=== PATIENT | male | born 1940 | race Caucasian/White ===

== ENCOUNTER 2016-07-17 11:43 | Emergency (ER) | payer MEDICARE, MEDICAID ==
[2016-07-17] MEDS ORDERED: Sodium Chloride 0.9% 10 ML Syringe FLUSH PRN (12:02)
[2016-07-17] MEDS ORDERED: Ondansetron 4 MG/2 ML SDV IVPUSH ONE (12:05)
[2016-07-17] MEDS ORDERED: Sodium Chloride 0.9% 1,000 ML IV ONE ×2 (12:05→13:36)
[2016-07-17 13:05] LABS: CHLORIDE,CL 102 mmol/L (98-107); SODIUM,NA 136 mmol/L (136-145)
[2016-07-17] MEDS ORDERED: Calcium Chloride 10% 1 GM/10 ML Syringe IVPUSH ONE (13:36)
[2016-07-17] MEDS ORDERED: Insulin Regular, Human 10 UNIT in Dextrose 10% in Water 500 ML IV ONE ×2 (13:37)
[2016-07-17] MEDS ORDERED: Calcium Gluconate 10% 1 GM/10 ML SDV IVPUSH ONE (13:43)
[2016-07-17] MEDS ORDERED: 50% Dextrose in Water 50 ML Syringe IV PRN (13:43)
[2016-07-17] MEDS ORDERED: Insulin Regular, Human 100 Units/ML 3 ML Vial IV ONE (14:00)
[2016-07-17] MEDS ORDERED: Sodium Polystyrene Sulfonate 15 GM/60 ML Susp 60 ML Bot RECTAL ONE (14:11)
[2016-07-17] MEDS ORDERED: Sodium Bicarbonate 8.4% 50 MEQ/50 ML Syringe ONE ×2 (14:22→14:25)
[2016-07-17 19:25] VITALS: BP 100/63
--- NOTE | 2016-07-17 19:43 | ER ---
Date of Service: 07/17/2016 SUBJECTIVE: Mr. Fernandez presents to the emergency room with complaints of fall and head contusion status post syncope. The patient is a resident at the [facility]. Staff states that the patient has been experiencing nausea, vomiting, and diarrhea for several days. The patient does have a history of Alzheimer disease and does deny having any of these symptoms; however, staff states that he has been experiencing them. Staff states that he attempted to stand yesterday when he experienced a syncopal episode, falling and striking his right temporal area on the floor. It is unclear if the patient had a loss of consciousness. The patient has not been experiencing any significant fever or chills. The patient does have a history of stage III-IV chronic kidney disease. According to his chart, the patient's last creatinine was in the 1.6 range. PAST MEDICAL HISTORY: 1. Stage III chronic kidney disease. 2. Alzheimer disease. 3. Chronic constipation. 4. GERD. 5. Hypertension. 6. Coronary artery disease. 7. Dementia. 8. Cerebrovascular disease. 9. Depression. 10.Anemia. MEDICATIONS: 1. Amlodipine 10 mg at bedtime. 2. Vitamin B complex 1 p.o. daily. 3. Zofran 4 mg ODT p.r.n. q.4 hours. 4. Milk of magnesia 30 mL p.o. daily p.r.n. 5. Lisinopril 10 mg p.o. daily. 6. Donepezil 10 mg p.o. daily. 7. Adderall 10 mg daily. 8. Celexa 10 mg p.o. daily. 9. Vitamin D3 1000 units p.o. daily. 10.Aspirin 81 mg daily. ALLERGIES: NKDA. REVIEW OF SYSTEMS: Largely unobtainable due to the patient's Alzheimer's. He offers no complaint when asked in the examination room. PHYSICAL EXAMINATION: General: This is a 75-year-old male patient, in no acute distress. Vital Signs: Initial vital signs; blood pressure was 60/32, heart rate was 66, respiratory rate was 16, O2 saturation was 99%. Skin: Warm, pale, and extremely dry. HEENT: Head is normocephalic, atraumatic. Eyes, PERRLA. Extraocular movements intact. Mouth, oral mucosa is dry. No erythema or exudate noted to the hypopharynx. Neck: Supple without masses. There is no lymphadenopathy. Lungs: Diminished in the bases. Heart: Regular rate and rhythm. Abdomen: Soft, nontender to palpation. Extremities: Without edema. Neurologic: He is awake for majority of his stay in the emergency room. When he was sleeping, he was easily arousable. DIAGNOSTIC DATA: EKG was obtained showing a sinus rhythm with some peak T-waves without any acute ST or T-wave abnormalities. Peak T-waves morphology consistent with that of hyperkalemia. Abdomen complete was obtained. No evidence of any acute pathology. CT scan of the patient's brain was obtained. There was no evidence of any acute pathology status post fall. LABORATORY DATA: WBCs 9.9, hemoglobin is 12.1, platelets are 137, he had 92% neutrophils, 2% lymphocytes, 4.9% monos. PT 11.5, INR is 1.0. ABGs; pH is 7.282, pCO2 is 40, pO2 is 71, bicarb is 19, CO2 is 20, O2 saturation 92%, base deficit 8. Chemistry; sodium is 136, potassium is 7.1, chloride is 102, bicarb is 25, BUN is 51, creatinine is 3.5, creatinine clearance is 15.55, GFR is 17, glucose is 120. Point of care glucose after his insulin D50 was 128. Lactic acid is 1.8. Calcium is 9.5, corrected calcium is 9.74, total bilirubin is 0.5. AST is 21, ALT is 17, alkaline phosphatase is 100. Troponin is less than 0.017. Albumin is 3.7. Urinalysis revealed a specific gravity of 1.030, pH of 5.0, protein was 100, he did have 15 ketones, negative glucose, negative occult blood and nitrites, he did have moderate bilirubin, 0.2 urobilinogen, negative leukocyte esterase, he did have few urine bacteria. EMERGENCY ROOM COURSE: An IV access was established. He was given a total of 2 L of normal saline as he arrived here to the emergency room. His blood pressure increased into the 90s range systolic. Attention was shifted to the patient's hyperkalemia. The patient was given 10 units of regular insulin and 25 g of 50% dextrose in water. He was given a 30 g of Kayexalate enema. Worthington catheter was placed. He initially was not producing any urine, but began producing a scant amount of urine as his resuscitation progressed. The patient was started on a sodium bicarbonate drip as he was hyperkalemic and acidotic. The patient remained alert and responsive without any respiratory distress during his stay in the emergency room. ASSESSMENT: 1. Acute on chronic renal failure secondary to severe dehydration. 2. Syncope with fall and closed head injury secondary to #1. PLAN: I did contact [facility] regarding this patient. The patient was accepted in transfer. The patient was transported by [facility] ground ambulance. Discussed findings with the patient and his family. He does not want to have any CPR done at this time, but is open to the dialysis as needed. All questions were answered. MWK: 07/17/2016 18:35:08 MODL: 07/17/2016 19:37:53 /[id number]
== END 2016-07-17 16:00 | disposition short-term general hospital (02) ==
LOC: VM.ED 11:43
DX: R55 Syncope and collapse (principal); S09.90XA Unspecified injury of head, initial encounter; I12.9 Hypertensive chronic kidney disease with stage 1 through stage 4 chronic kidney disease, or unspecified chronic kidney disease; N18.3 Chronic kidney disease, stage 3 (moderate); E86.0 Dehydration; G30.9 Alzheimer's disease, unspecified; F02.80 Dementia in other diseases classified elsewhere, unspecified severity, without behavioral disturbance, psychotic disturbance, mood disturbance, and anxiety; K21.9 Gastro-esophageal reflux disease without esophagitis; I25.10 Atherosclerotic heart disease of native coronary artery without angina pectoris; F32.9 Major depressive disorder, single episode, unspecified; Z86.73 Personal history of transient ischemic attack (TIA), and cerebral infarction without residual deficits; Z86.2 Personal history of diseases of the blood and blood-forming organs and certain disorders involving the immune mechanism; W19.XXXA Unspecified fall, initial encounter
CPT/HCPCS: 36415; 36600; 51702; 70450; 71010; 80053; 81001; 82803; 82962; 83605; 84484; 85025; 85610; 86140; 93005; 96361; 96365; 96375; 99285; A9270; J0610; J1815; J2405; J7030; J7050; J7060